=== PATIENT | female | born 1965 | race Caucasian/White ===

== ENCOUNTER 2017-11-29 13:19 | Emergency (ER) | payer MEDICAID ==
[~2017-11-29] VITALS: Ht 149.9 cm; Wt 102.5 kg
[2017-11-29 13:29] VITALS: BP 157/96
== END 2017-11-29 14:50 | disposition home or self-care (01) ==
LOC: ED 13:19
DX: H66.93 Otitis media, unspecified, bilateral (principal)

== ENCOUNTER 2018-07-16 19:05 | Emergency (ER) | payer MEDICAID ==
[~2018-07-16] VITALS: Ht 149.9 cm; Wt 76.2 kg
[2018-07-16 19:11] VITALS: Ht 149.9 cm; Wt 76.2 kg
[2018-07-16 22:43] VITALS: BP 128/79
== END 2018-07-16 22:43 | disposition home or self-care (01) ==
LOC: ED 19:05
DX: S39.012A Strain of muscle, fascia and tendon of lower back, initial encounter (principal); S83.92XA Sprain of unspecified site of left knee, initial encounter; S40.022A Contusion of left upper arm, initial encounter; S80.212A Abrasion, left knee, initial encounter; Z90.49 Acquired absence of other specified parts of digestive tract; Z90.710 Acquired absence of both cervix and uterus; W17.89XA Other fall from one level to another, initial encounter; Y93.89 Activity, other specified; Y92.59 Other trade areas as the place of occurrence of the external cause; Y99.8 Other external cause status
CPT/HCPCS: J1885; Q0092